=== PATIENT | male | born 1955 | race Two or more races ===

== ENCOUNTER 2018-03-22 18:30 | Emergency (ER) | payer OTHER ==
[~2018-03-22] VITALS: Ht 170.2 cm; Wt 78.0 kg
== END 2018-03-22 23:42 | disposition home or self-care (01) ==
LOC: ER 18:30
DX: N20.0 Calculus of kidney (principal); K57.30 Diverticulosis of large intestine without perforation or abscess without bleeding

== ENCOUNTER 2018-05-16 10:23 | Emergency (ER) | payer OTHER ==
[~2018-05-16] VITALS: Ht 170.2 cm; Wt 77.1 kg
[2018-05-16] MEDS ORDERED: ZITHROMAX TRI-500 MG PO (12:44)
[2018-05-16] MEDS ORDERED: TUSSI PRES-B L120 M1 PO (12:44)
== END 2018-05-16 13:08 | disposition home or self-care (01) ==
LOC: ER 10:23
DX: B34.9 Viral infection, unspecified (principal)

== ENCOUNTER 2019-10-20 18:46 | Emergency (ER) | payer OTHER ==
[~2019-10-20] VITALS: Ht 170.2 cm; Wt 77.1 kg
[~2019-10-20 18:46] MED LIST: TUSSI PRES-B L120 M1 PO; ZITHROMAX TRI-500 MG PO
[2019-10-21] MEDS ORDERED: PERCOCET 5-3251 EACH PO (02:34)
[2019-10-21] MEDS ORDERED: PEPCID AC20 MG PO (02:34)
[2019-10-21] MEDS ORDERED: ONDANSETRON ODT4 MG SL (02:34)
== END 2019-10-21 03:33 | disposition home or self-care (01) ==
LOC: ER 18:46
DX: K57.32 Diverticulitis of large intestine without perforation or abscess without bleeding (principal); N20.1 Calculus of ureter

== ENCOUNTER 2019-12-07 12:12 | Outpatient (CLI) | payer OTHER ==
[~2019-12-07 12:12] MED LIST changes: +ONDANSETRON ODT4 MG SL; +PEPCID AC20 MG PO; +PERCOCET 5-3251 EACH PO
== END 2019-12-07 12:15 | disposition home or self-care (01) ==
LOC: NUCLEAR 12:12
PROVIDERS: ATTEND Internal Medicine Cardiovascular Disease
DX: I10 Essential (primary) hypertension (principal)

== ENCOUNTER 2022-08-04 12:15 | Outpatient (CLI) | payer OTHER | END 2022-08-04 12:19 | disposition home or self-care (01) | LOC: SONOGRAMA 12:15 | PROVIDERS: ATTEND Urology | DX: R31.21 Asymptomatic microscopic hematuria (principal); N20.0 Calculus of kidney ==

== ENCOUNTER 2022-11-28 21:56 | Emergency (ER) | payer OTHER ==
[~2022-11-28] VITALS: Ht 170.2 cm; Wt 79.4 kg
== END 2022-11-28 22:49 | disposition home or self-care (01) ==
LOC: ER 21:56
DX: K05.10 Chronic gingivitis, plaque induced (principal)

== ENCOUNTER → 2022-12-03 11:41 | Outpatient (CLI) | payer OTHER | END | disposition home or self-care (01) | LOC: EKG 11:41 | PROVIDERS: ATTEND Internal Medicine Pulmonary Disease | DX: I11.9 Hypertensive heart disease without heart failure (principal); Z98.41 Cataract extraction status, right eye; H25.011 Cortical age-related cataract, right eye ==

== ENCOUNTER 2025-01-05 06:33 | Outpatient (CLI) | payer OTHER ==
[2025-01-05 07:14] LABS: BASO % 1.4 % (0.1-1.2); EOS # 0.37 (0.04-0.54); EOS % 4.8 % (0.7-7.0); LYMPH # 2.64 (1.18-3.74); LYMPH % 34.0 % (19.3-53.1); MEAN PLATELET VOLUME 10.00 fl (9.4-12.4); MONO # 1.00 (0.24-0.82); NEUT # 3.60 (1.56-6.13); NEUT % 46.3 % (34.0-71.1); RED CELL DISTRIBUTION WIDTH 12.9 % (11.6-14.4)
[2025-01-05 07:16] LABS: MONO % 12.9 % (4.7-12.5)
[2025-01-05 07:41] LABS: URINE APPEARANCE Cloudy; URINE BILIRRUBIN Negative (NEGATIVE); URINE BLOOD Moderate; URINE COLOR Dark Yellow; URINE GLUCOSE Negative (NEGATIVE); URINE KETONE Trace (NEGATIVE); URINE LEUKOCYTE Negative; URINE NITRATE Negative; URINE PROTEIN Trace (NEGATIVE); URINE UROBILINOGEN 1.0 E.U./dl
[2025-01-05 07:45] LABS: URINE BACTERIA 9.5 uL (0.0-1933); URINE EPITHELIAL CELLS 3.0 uL (0.0-38.8); URINE RBC 66.5 uL (0.0-20.8); URINE WBC 4.9 uL (0.0-23.2)
[2025-01-05 08:08] LABS: URINE CAST 0.43 uL (0.0-1.40)
[2025-01-05 08:09] LABS: URINE CRYSTALS MANY /HPF; URINE MUCUS HEAVY
[2025-01-05 08:18] LABS: ALT/SGPT 38.0 U/L (12-78); AST/SGOT 26.0 U/L (15-37); BILIRUBIN TOTAL 0.9 mg/dL (0.3-1.2); BUN CREA RATIO 12.0 (7.0-25.0); CHOL HDL RATIO 4.4 (0-5.0); CREATININE SERUM 1.16 mg/dL (0.70-1.30); GFR 62.8; GLOBULINA 3.2 G/DL (2.4-3.5); GLUCOSE FASTING 85.0 mg/dL (65-100); HDL 50.0 mg/dl (40-60); LDL 149.0 mg/dl (0-130); OSMOLALITY SERUM 287.0 MOSM/KG (275-295); T4 TOTAL 7.97 UG/DL (4.5-12.1); TSH 2.77 uIU/mL (0.358-3.74); VLDL 19.0 (0-39)
[2025-01-05 11:35] LABS: T3 TOTAL 1.34 ng/ml (0.846-2.02); VITAMIN D3 25 HYDROXY 31.69 ng/ml (30-120)
[2025-01-06 11:55] LABS: ob NEGATIVE (NEGATIVE)
== END 2025-01-05 06:38 | disposition home or self-care (01) ==
LOC: LAB 06:33
PROVIDERS: ATTEND Internal Medicine Cardiovascular Disease
DX: I10 Essential (primary) hypertension (principal); E03.9 Hypothyroidism, unspecified; E78.2 Mixed hyperlipidemia; D64.0 Hereditary sideroblastic anemia; Z12.11 Encounter for screening for malignant neoplasm of colon; M81.0 Age-related osteoporosis without current pathological fracture